=== PATIENT | male | born 1970 | race African-American/Black ===

== ENCOUNTER 2017-02-16 13:23 | Emergency (ER) | payer OTHER ==
[~2017-02-16 13:23] MED LIST: FLEXERIL10 M1 PO; IBUPROFEN800 MG PO; LORTAB 2.5/5001 TAB PO; PEN-VEE K PO; VICODIN PO; VOLTAREN75 MG PO
== END 2017-02-16 13:58 | disposition home or self-care (01) ==
LOC: CFTX 13:23 → CED 13:23 → CFTX 13:46
DX: M54.5 Low back pain (principal); G89.29 Other chronic pain; Z88.0 Allergy status to penicillin; Z88.5 Allergy status to narcotic agent; Z79.899 Other long term (current) drug therapy
CPT/HCPCS: 96372; 99283; J1885